=== PATIENT | female | born 2000 | race Hispanic/Latino ===

== ENCOUNTER 2021-05-13 19:45 | Emergency (ER) | payer SELFPAY ==
[2021-05-13] MEDS ORDERED: Ibuprofen 200 MG TAB ONE (21:04)
== END 2021-05-13 21:12 ==
LOC: ERS 19:45
DX: S00.33XA Contusion of nose, initial encounter (principal); F17.210 Nicotine dependence, cigarettes, uncomplicated; Y04.2XXA Assault by strike against or bumped into by another person, initial encounter
CPT/HCPCS: 70160